=== PATIENT | female | born 1930 | race Caucasian/White ===

== ENCOUNTER 2016-06-11 19:16 | Emergency (ER) | payer MEDICARE ==
[~2016-06-11] VITALS: Ht 167.6 cm; Wt 79.4 kg
--- NOTE | 2016-06-11 20:09 | PHYS DOC ---
Past Medical History Past Medical History: Diabetes-Type II, High Cholesterol, Hypertension Past Surgical History: Other Additional Past Surgical Histo: R. breast Alcohol Use: None Drug Use: None Adult General Chief Complaint Chief Complaint: UPPER EXTREMITY INJURY HPI HPI 86-year-old female presents with right elbow pain. She states she fell going up a step to [employer]. She hit her right forearm. She states rotating her right arm in pronation and supination causes severe pain. She denies any other injury. She states is no pain in her wrist. She also states her is no pain in the shoulder. [] Review of Systems Review of Systems Constitutional: Denies fever or chills [] Eyes: Denies change in visual acuity, redness, or eye pain [] HENT: Denies nasal congestion or sore throat [] Respiratory: Denies cough or shortness of breath [] Cardiovascular: No additional information not addressed in HPI [] GI: Denies abdominal pain, nausea, vomiting, bloody stools or diarrhea [] : Denies dysuria or hematuria [] Musculoskeletal: Right elbow injury [] Integument: Denies rash or skin lesions [] Neurologic: Denies headache, focal weakness or sensory changes [] Endocrine: Denies polyuria or polydipsia [] Allergies Allergies Allergies Coded Allergies Type Severity Reaction Last Updated Verified Penicillins Allergy Unknown Rash 06/11/16 Yes Physical Exam Physical Exam Constitutional: Well developed, well nourished, no acute distress, non-toxic appearance. [] HENT: Normocephalic, atraumatic, bilateral external ears normal, oropharynx moist, no oral exudates, nose normal. [] Eyes: PERRLA, EOMI, conjunctiva normal, no discharge. [] Neck: Normal range of motion, no tenderness, supple, no stridor. [] Cardiovascular:Heart rate regular rhythm, no murmur [] Lungs & Thorax: Bilateral breath sounds clear to auscultation [] Abdomen: Bowel sounds normal, soft, no tenderness, no masses, no pulsatile masses. [] Skin: Warm, dry, no erythema, no rash. [] Back: No tenderness, no CVA tenderness. [] Extremities: No tenderness, no cyanosis, no clubbing, ROM intact, no edema. [] Neurologic: Alert and oriented X 3, normal motor function, normal sensory function, no focal deficits noted. [] Psychologic: Affect normal, judgement normal, mood normal. [] Current Patient Data Vital Signs Vital Signs Date Time Temp Pulse Resp B/P Pulse Ox O2 Delivery O2 Flow Rate FiO2 06/11/16 19:26 98.8 84 18 158/72 96 Room Air 98.8 EKG EKG [] Radiology/Procedures Radiology/Procedures [] Impressions: Proximal radius fracture as interpreted by me Course & Med Decision Making Course & Med Decision Making Pertinent Labs and Imaging studies reviewed. (See chart for details) [Procedure: Sugar tong splint patient's right arm was flexed to 90 in a sugar tong splint was placed. The splint was placed by the signal technician. I examined the patient after the splint was placed with good cap refill and sensation. A sling was also placed. Dragon Disclaimer Dragon Disclaimer This electronic medical record was generated, in whole or in part, using a voice recognition dictation system. Departure Departure Impression: Primary Impression: Fracture, radius, proximal Disposition: HOME, SELF-CARE Condition: STABLE Referrals: MARILYN ATKINSON II, MD Patient Instructions: Radius Fracture with [facility] Additional Instructions: Follow with this week for recheck. Wear splint until seen by the orthopedic doctor. Scripts Hydrocodone/Apap 5-325 ([place] 5-325 Tablet)1 Each Tablet1 Tab PO PRN Q6HRS PRN PAIN #30 TAB Prov:WIL MENDIETA DO 06/11/16 Problem Qualifiers Primary Impression: Fracture, radius, proximal Encounter type: initial encounter Fracture type: closed Fracture morphology : unspecified fracture morphology Laterality: right Qualified Code: S52.101A - Unspecified fracture of upper end of right radius, initial encounter for closed fracture WIL MENDIETA DO Jun 11, 2016 20:09
[2016-06-11] MEDS ORDERED: HYDR-971 PO (20:14)
[2016-06-11 20:32] VITALS: BP 126/60
[2016-06-12] MEDS ORDERED: OXYC-323 PO (06:22)
--- NOTE | 2016-06-16 08:57 | RAD ---
Exam performed: X-ray right wrist and right forearm History: Follow-up fracture. Date of service: X-ray progressed from 06/12/16 and X-ray right forearm from 04/29. 3 views right forearm findings: There is a minimally displaced fracture neck of right radius. The wrist joint appears essentially preserved. There are degenerative changes about the intercarpal joints. Diffuse soft tissue swelling is identified. There is a elbow joint effusion. Impression: 1. Minimally displaced fracture neck of right radius with diffuse soft tissue swelling. End impression. 3 views right wrist findings: Normal alignment is essentially preserved. An ossific fragment is visible on the lateral view on the volar aspect, however no gross displaced fracture is identified. Fine bony details are obscured by the casting material. There are degenerative changes about the first carpometacarpal joint. Impression: 1. No gross fracture displaced fracture noted although note is made that casting material obscures fine bony details. 2. 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 [facility]
== END 2016-06-11 20:46 | disposition home or self-care (01) ==
LOC: ER 19:16
DX: S52.101A Unspecified fracture of upper end of right radius, initial encounter for closed fracture (principal); I10 Essential (primary) hypertension; E78.00 Pure hypercholesterolemia, unspecified; E11.9 Type 2 diabetes mellitus without complications; Z88.0 Allergy status to penicillin; W22.8XXA Striking against or struck by other objects, initial encounter; Y93.89 Activity, other specified; Y99.8 Other external cause status; Y92.89 Other specified places as the place of occurrence of the external cause
CPT/HCPCS: 29125; 73090; 99284-25

== ENCOUNTER 2016-06-12 05:25 | Emergency (ER) | payer MEDICARE ==
[~2016-06-12] VITALS: Ht 167.6 cm; Wt 79.4 kg
[~2016-06-12 05:25] MED LIST: HYDR-971 PO
--- NOTE | 2016-06-12 06:04 | PHYS DOC ---
Past Medical History Past Medical History: Diabetes-Type II, High Cholesterol, Hypertension Past Surgical History: Other Additional Past Surgical Histo: R. breast Alcohol Use: None Drug Use: None Adult General Chief Complaint Chief Complaint: UPPER EXTREMITY PAIN HPI HPI Patient is a 86 year [id number] female who presents here today complaining of pain to her right wrist. Patient reports yesterday afternoon she went to [facility] she tripped and fell on her right upper extremity. Patient does not recall exactly how she landed does not recall if it was on outstretched arm or not. Patient arrived to the ER yesterday afternoon and had an x-ray obtained of her right elbow which revealed a fracture of her proximal radius. Patient was placed in a sugar tong splint and was discharged home with instructions to follow up with Dr. martinez. Patient reports that she is from the [facility] is returning on Thursday so her preference is to follow-up with her own primary care physician for referral to see an orthopedic surgeon. The patient is planning on calling her private care physician this morning to set up follow- up with an orthopedic surgeon at the [facility] for her when she returns next week. Patient returns to the ER today complaining of pain and tingling and swelling at her right wrist. Patient reports that the pain in her right elbow is fairly well-controlled however she is concerned that she also has pain now at her right wrist. Patient denies any subsequent falls or trauma. Patient is requesting a shot to help with the pain at this time because of the discomfort. Patient's physical exam is significant for tenderness to palpation to her right wrist greatest near the radial aspect. There is no significant soft tissue swelling in that area currently. Patient has good hand music education director however she reports decreased sensation and paresthesias to her hand. A/P this is an 86-year-old female who presents to the ER today complaining of pain to her right wrist. Patient was seen and evaluated here in the ER yesterday and was diagnosed with a proximal radius fracture. Patient was placed in a splint yesterday was instructed to follow up with her primary care physician/orthopedic surgeon for further evaluation and treatment and management of her proximal radius fracture. Patient's x-ray of her right forearm yesterday does not reveal any acute fracture of her wrist however there are no dedicated films. Patient will need to get films done and then reassessed as well as pain management. Review of Systems Review of Systems Constitutional: Denies fever or chills [] Eyes: Denies change in visual acuity, redness, or eye pain [] HENT: Denies nasal congestion or sore throat [] All other review systems are negative except as documented in the history of present illness portion. Current Medications Current Medications Current Medications Medications (Trade) Dose Ordered Sig/Dinesh Start Time Stop Time Status Last Admin Dose Admin Hydromorphone HCl (Dilaudid) 1 mg 1X ONCE 06/12/16 06:15 06/12/16 06:16 DC 06/12/16 06:11 1 MG Ondansetron HCl (Zofran Odt) 4 mg 1X ONCE 06/12/16 06:15 06/12/16 06:16 DC 06/12/16 06:11 4 MG Allergies Allergies Allergies Coded Allergies Type Severity Reaction Last Updated Verified Penicillins Allergy Unknown Rash 06/11/16 Yes Physical Exam Physical Exam Constitutional: Well developed, well nourished, no acute distress, non-toxic appearance. [] HENT: Normocephalic, atraumatic, bilateral external ears normal, oropharynx moist, no oral exudates, nose normal. [] Eyes: PERRLA, EOMI, conjunctiva normal, no discharge. [] Neck: Normal range of motion, no tenderness, supple, no stridor. [] r wrist tenderness to palpation. min st swelling. Current Patient Data Vital Signs Vital Signs Date Time Temp Pulse Resp B/P Pulse Ox O2 Delivery O2 Flow Rate FiO2 06/12/16 05:40 97.4 80 18 126/60 96 Room Air 97.4 EKG EKG [] Radiology/Procedures Radiology/Procedures [] X-ray negative for acute fracture. Patient is still splinted to her distal phalanxes. Patient feels much better after the shot of Dilaudid and we will send her home with Percocet. Course & Med Decision Making Course & Med Decision Making Pertinent Labs and Imaging studies reviewed. (See chart for details) []Case signed out to dr roldan with xray pending. Tommy Disclaimer Tommy Disclaimer This electronic medical record was generated, in whole or in part, using a voice recognition dictation system. Departure Departure Impression: Primary Impression: Wrist sprain Disposition: HOME, SELF-CARE Condition: IMPROVED Referrals: UNKNOWN PCP NAME (PCP) Patient Instructions: Cast or Splint Care, Wrist Sprain with [facility] Scripts Oxycodone/Apap 5-325 (Percocet 5-325 Mg Tablet)1 Each Tablet1 Tab PO Q6-8HRS PRN PAIN #20 TAB Prov:KANDICE ACUÑA MD 06/12/16 Problem Qualifiers Primary Impression: Wrist sprain Encounter type: subsequent encounter Laterality: right Qualified Code: S63.501D - Unspecified sprain of right wrist, subsequent encounter KANDICE ACUÑA MD Jun 12, 2016 06:04
[2016-06-12 06:08] VITALS: BP 148/73
[2016-06-12] MEDS ORDERED: ONDANSETRON ODT 4 MG TAB.RAPDIS PO ONE (06:15)
[2016-06-12] MEDS ORDERED: HYDROMORPHONE 2 MG/ML VIAL. IM ONE (06:15)
[2016-06-12] MEDS ORDERED: OXYC-323 PO (06:22)
--- NOTE | 2016-06-16 08:58 | RAD ---
Exam performed: X-ray right wrist and right forearm History: Follow-up fracture. Date of service: X-ray progressed from 06/12/16 and X-ray right forearm from 04/29. 3 views right forearm findings: There is a minimally displaced fracture neck of right radius. The wrist joint appears essentially preserved. There are degenerative changes about the intercarpal joints. Diffuse soft tissue swelling is identified. There is a elbow joint effusion. Impression: 1. Minimally displaced fracture neck of right radius with diffuse soft tissue swelling. End impression. 3 views right wrist findings: Normal alignment is essentially preserved. An ossific fragment is visible on the lateral view on the volar aspect, however no gross displaced fracture is identified. Fine bony details are obscured by the casting material. There are degenerative changes about the first carpometacarpal joint. Impression: 1. No gross fracture displaced fracture noted although note is made that casting material obscures fine bony details. 2. 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 [facility]
== END 2016-06-12 06:35 | disposition home or self-care (01) ==
LOC: ER 05:25
DX: S63.501A Unspecified sprain of right wrist, initial encounter (principal); I10 Essential (primary) hypertension; E78.00 Pure hypercholesterolemia, unspecified; E11.9 Type 2 diabetes mellitus without complications; Z88.0 Allergy status to penicillin; W01.0XXA Fall on same level from slipping, tripping and stumbling without subsequent striking against object, initial encounter; Y93.89 Activity, other specified; Y92.22 Religious institution as the place of occurrence of the external cause; Y99.8 Other external cause status
CPT/HCPCS: 73110; 96372; 99284; J1170; Q0162

== ENCOUNTER 2016-06-14 11:39 | Emergency (ER) | payer MEDICARE ==
[~2016-06-14] VITALS: Ht 167.6 cm; Wt 79.4 kg
[~2016-06-14 11:39] MED LIST changes: +OXYC-323 PO
[2016-06-14] MEDS ORDERED: DIAZEPAM 10 MG/2 ML DISP.SYRIN. IM ONE (12:30)
[2016-06-14] MEDS ORDERED: NAPROXEN 250 MG TABLET PO ONE (12:30)
[2016-06-14] MEDS ORDERED: HYDROMORPHONE 2 MG/ML VIAL. IM ONE (14:15)
[2016-06-14] MEDS ORDERED: CYCL5TAB PO (15:08)
[2016-06-14] MEDS ORDERED: NAPR250T2 PO (15:08)
[2016-06-14 15:10] LABS: POTASSIUM ISTAT 3.3 mmol/L (3.5-5.0)
[2016-06-14] MEDS ORDERED: GABA-585 PO (15:16)
[2016-06-14] MEDS ORDERED: GABAPENTIN 100 MG CAPSULE. PO ONE (15:30)
[2016-06-14 15:41] VITALS: BP 156/73
--- NOTE | 2016-06-14 16:58 | ED.ADGEN ---
Past Medical History Past Medical History: Diabetes-Type II, High Cholesterol, Hypertension Past Surgical History: Appendectomy, Cholecystectomy, Knee Replacement, Other Additional Past Surgical Histo: R. breast MASTECTOMY Alcohol Use: None Drug Use: None Adult General Chief Complaint Chief Complaint: UPPER EXTREMITY PAIN HPI HPI Patient is a 86 year old woman, history of type 2 diabetes mellitus, hypercholesterolemia, hypertension, who presents to the emergency department with a complaint of right upper extremity pain and paresthesias. Patient was seen in the emergency department last week, after a fall resulted in a minimally displaced radial head fracture. Patient had a sugar tong splint placed , and was discharged home with oxycodone, which she does take daily for chronic back pain. Patient was seen in the emergency department 2 days ago, with complaints of her staging continued pain and swelling, that time she had x-ray of her wrist performed was negative, was continued on her analgesia medications. Patient states that she continues to have paresthesias in the radial distribution of her right hand, with swelling of the fingers and hand. Patient still has blood in place, denies any new injuries, denies any fevers or chills, or other complaints. She last took her hydrocodone about 9:00 in the morning, 6 hours prior to arrival. Review of Systems Review of Systems Constitutional: Denies fever or chills. [] Eyes: Denies change in visual acuity. [] HENT: Denies nasal congestion or sore throat. [] Respiratory: Denies cough or shortness of breath. [] Cardiovascular: Denies chest pain or edema. [] GI: Denies abdominal pain, nausea, vomiting, bloody stools or diarrhea. [] : Denies dysuria. [] Musculoskeletal: Denies back pain, pain and paresthesias right upper extremity. Integument: Denies rash. [] Neurologic: Denies headache, focal weakness or sensory changes. [] Endocrine: Denies polyuria or polydipsia. [] Lymphatic: Denies swollen glands. [] Psychiatric: Denies depression or anxiety. [] Current Medications Current Medications Current Medications Medications (Trade) Dose Ordered Sig/Dinesh Start Time Stop Time Status Last Admin Dose Admin Diazepam (Valium) 5 mg 1X ONCE 06/14/16 12:30 06/14/16 12:31 DC 06/14/16 12:56 5 MG Gabapentin (Neurontin) 100 mg 1X ONCE 06/14/16 15:30 06/14/16 15:31 DC 06/14/16 15:27 100 MG Hydromorphone HCl (Dilaudid) 0.5 mg 1X ONCE 06/14/16 14:15 06/14/16 14:16 DC 06/14/16 15:11 0.5 MG Naproxen (Naprosyn) 250 mg 1X ONCE 06/14/16 12:30 06/14/16 12:31 DC 06/14/16 12:56 250 MG Allergies Allergies Allergies Coded Allergies Type Severity Reaction Last Updated Verified Penicillins Allergy Unknown Rash 06/11/16 Yes Physical Exam Physical Exam Constitutional: Well developed, well nourished, no acute distress, non-toxic appearance. [] HENT: Normocephalic, atraumatic, bilateral external ears normal, oropharynx moist, no oral exudates, nose normal. [] Eyes: PERRLA, EOMI, conjunctiva normal, no discharge. [] Neck: Normal range of motion, no tenderness, supple, no stridor. [] Cardiovascular:Heart rate regular rhythm, no murmur, S1, S2, rubs or gallops. [] Lungs & Thorax: Bilateral breath sounds clear to auscultation, no wheezing, rhonchi, rales. [] Abdomen: Bowel sounds normal, soft, no tenderness, no masses, no pulsatile masses. [] Skin: Warm, dry, no erythema, no rash. [] Back: No tenderness, no CVA tenderness. [] Extremities: Patient with tenderness to palpation at the elbow, with no evidence of acute trauma or deformity, no bruising, patient noted to have mild swelling located in the dorsal aspect of the right hand, she does have range of motion in the fingers, although there is mild swelling noted in fingers 2 and 3 , is able to flex and extend, although she states she does have pain. Complains of decreased sensation in the radial distribution of the fingers, normal sensation and function of fourth and fifth digits consistent with the ulnar distribution. No cyanosis, no clubbing, no edema. [] Neurologic: Alert and oriented X 3, normal motor function, normal sensory function, no focal deficits noted. [] Psychologic: Affect normal, judgement normal, mood normal. [] Current Patient Data Vital Signs Vital Signs Date Time Temp Pulse Resp B/P Pulse Ox O2 Delivery O2 Flow Rate FiO2 3/4/17 15:41 88 20 156/73 96 Room Air 06/14/16 11:56 98.6 98.6 Lab Values Laboratory Tests Test 06/14/16 15:05 POC Hemoglobin 14.6g/dL (12-15) POC Hematocrit 43% (36-40) H POC Sodium 140mmol/L (135-145) POC Potassium 3.3mmol/L (3.5-5.0) L POC Chloride 97mmol/L (98-110) L POC Total CO2 31mmol/L (23-32) Anion Gap 16mmol/L (6-14) H POC Blood Urea Nitrogen 36mg/dL (8-26) H POC Creatinine 1.7mg/dL (0.5-1.4) H Glucose Level 106mg/dL (70-99) H POC Ionized Calcium (Bruno) 1.10mmol/L (1.13-1.32) L Laboratory Tests 06/14/16 15:05 EKG EKG Not indicated. [] Radiology/Procedures Radiology/Procedures Not indicated. [] Course & Med Decision Making Course & Med Decision Making Pertinent Labs and Imaging studies reviewed. (See chart for details) Once patient's splint was removed, she had significant improvement of swelling, and the redness with her fingers, I do believe after discussion that the patient was not elevating her upper extremity properly, and her hand was hanging over the splint, causing some compression, and pain. She has no signs of compartment syndrome, of any concerning entrapment, and once this was removed and the swelling has decreased, her pain is significantly improved, patient is however, continued to experience some neuropathic type pain, consistent with the swelling that we didn't note, therefore she was given Valium , naproxen in the ED, and also a injection of Dilaudid after her pain return, patient is on oxycodone at home twice daily for chronic pain. Findings as above discussed with Dr. Sy of orthopedics, as stated patient has no evidence of any acutely concerning findings, examination is consistent with swelling in the radial nerve distribution. There is no discoloration, evidence of infection, or evidence of new injury. No indications to re-x-ray. Recommends continuing with the sling only, continue to treat symptoms, including the addition of Neurontin for neuropathic pain. Patient has an appointment to follow up with an orthopedist near her home, and she'll be returning home tomorrow. On reevaluation patient is resting much more currently, neuropathic symptoms significantly improved, with swelling considerably improved as well. Sling replaced without issue, patient had a creatinine of 1.7, elevated blood urea nitrogen 36, patient encouraged to stay well-hydrated, does have a history of diabetes, therefore we will institute gabapentin 100 mg twice daily, along with the patient's home dose of oxycodone, which she is instructed to distance from use of cyclobenzaprine due to risk of sedation, and naproxen, patient giving medication precautions instructions on each of these drugs. To continue her home medications as stated. First dose of gabapentin given in the ED. Patient instructed to follow-up with her orthopedist, to continue sling as directed, and to return to the ED if any new or concerning symptoms develop. Patient and family at bedside voiced understanding and agreement with this plan, patient discharged home in stable condition with plan and prescriptions as above. Dragon Disclaimer Dragon Disclaimer This electronic medical record was generated, in whole or in part, using a voice recognition dictation system. Departure Impression: Primary Impression: Arm pain, right Additional Impressions: Fracture, radius, proximal Paresthesias in right hand Disposition: 01 HOME, SELF-CARE Condition: IMPROVED Scripts Gabapentin (Neurontin)100 Mg [id number] Mg PO BID PRN neuropathy #12 CAP Prov:MICHEAL CHAMPION DO 06/14/16 Naproxen 250 Mg [id number] Mg PO BID PRN PAIN #10 Prov:MICHEAL CHAMPION DO 06/14/16 Cyclobenzaprine Hcl 5 Mg Tablet1 Tab PO TID PRN PAIN #12 TAB Prov:MICHEAL CHAMPION DO 06/14/16 Problem Qualifiers Additional Impressions: Fracture, radius, proximal Encounter type: subsequent encounter Fracture type: closed Fracture morphology: unspecified fracture morphology Laterality: right Fracture healing: with routine healing Qualified Code: S52.101D - Unspecified fracture of upper end of right radius, subsequent encounter for closed fracture with routine healing MICHEAL CHAMPION DO Jun 14, 2016 16:58
== END 2016-06-14 15:41 | disposition home or self-care (01) ==
LOC: ER 11:39
DX: S52.101D Unspecified fracture of upper end of right radius, subsequent encounter for closed fracture with routine healing (principal); R20.9 Unspecified disturbances of skin sensation; I10 Essential (primary) hypertension; E11.9 Type 2 diabetes mellitus without complications; E78.00 Pure hypercholesterolemia, unspecified; Z88.0 Allergy status to penicillin; X58.XXXD Exposure to other specified factors, subsequent encounter
CPT/HCPCS: 80047; 96372; 99284; J1170; J3360

== ENCOUNTER 2021-09-05 11:15 | Emergency (ER) | payer MEDICARE ==
[~2021-09-05] VITALS: Ht 167.6 cm; Wt 72.3 kg
[~2021-09-05 11:15] MED LIST changes: +CYCL5TAB PO; +GABA-585 PO; +HYDR-3164 PO; -HYDR-971 PO; +NAPR-699 PO; -OXYC-323 PO; +OXYC1TAB15 PO
--- NOTE | 2021-09-05 11:35 | PHYS DOC ---
Past Medical History Past Medical History: Diabetes-Type II, High Cholesterol, Hypertension (KADI HELTON APRN) Past Surgical History: Appendectomy, Cholecystectomy, Knee Replacement, Other Additional Past Surgical Histo: R. breast MASTECTOMY (KADI HELTON APRN) Smoking Status: Never Smoker Alcohol Use: None Drug Use: None (KADI HELTON APRN) General Adult EDM: Chief Complaint: CONSTIPATION HPI: HPI: Patient is a 89-year-old female presents to the emergency department with complaints of decreasing bowel movements over the past 4 days. Patient reports she takes stool softeners at home, has noted that her stool while remaining soft has been very little and is now concerned that she is constipated. Patient reports she has had similar episodes in the past and gets good results with an enema. Patient reports she is here in the emergency department to receive her enema. Patient denies chest pains, dizziness, syncopal or near syncopal episodes, denies seeing blood in her stool, denies increased urinary frequency, urinary pressure, urinary burning, urinary pain hematuria or other dysuria. Patient denies other physical complaints or physical concerns. (KADI HELTON APRN) Review of Systems: Review of Systems: 14 body systems of review of systems have been reviewed. See HPI for pertinent positives and negative responses, otherwise all other systems are negative, nonpertinent or noncontributory. Constitutional: Negative except as outlined in HPI above. Skin: Negative except as outlined in HPI above. Eyes: Negative except as outlined in HPI above. HENT: Negative except as outlined in HPI above. Respiratory: Negative except as outlined in HPI above. Cardiovascular: Negative except as outlined in HPI above. GI: Negative except as outlined in HPI above. : Negative except as outlined in HPI above. Musculoskeletal: Negative except as outlined in HPI above. Integument: Negative except as outlined in HPI above. Neurologic: Negative except as outlined in HPI above. Endocrine: Negative except as outlined in HPI above. Lymphatic: Negative except as outlined in HPI above. Psychiatric: Negative except as outlined in HPI above. (KADI HELTON APRN) Heart Score: C/O Chest Pain: No Risk Factors: Risk Factors: DM, Current or recent (<one month) smoker, HTN, HLP, family history of CAD, obesity. Risk Scores: Score 0 - 3: 2.5% MACE over next 6 weeks - Discharge Home Score 4 - 6: 20.3% MACE over next 6 weeks - Admit for Clinical Observation Score 7 - 10: 72.7% MACE over next 6 weeks - Early Invasive Strategies (KADI HELTON APRN) Allergies: Allergies: Allergies Coded Allergies Type Severity Reaction Last Updated Verified Penicillins Allergy Unknown Rash 06/11/16 Yes (KADI HELTON APRN) Physical Exam: PE: Constitutional: Well developed, well nourished, no acute distress, non-toxic appearance. 89-year-old female in no apparent distress. HENT: Normocephalic, atraumatic. Eyes: Conjunctiva normal, no discharge. Neck: Normal range of motion, no stridor. Cardiovascular: No cyanosis appreciated, distal cap refill less than 2 seconds. Lungs & Thorax: Patient is in no respiratory distress, no audible adventitious lung sounds appreciated. Lung sounds are clear to auscultation all lung tuttle. Abdomen: Old surgical scars present, no skin discoloration of the abdomen appreciated, abdomen is round and soft, generalized discomfort to palpation all quadrants. Normal bowel sounds all 4 quadrants. Skin: Warm, dry, no erythema, no rash. Back: No tenderness, no deformities. Extremities: No tenderness, no cyanosis, no clubbing, ROM intact, no edema. Neurologic: Alert and oriented X 3, normal motor function, normal sensory function, no focal deficits noted. Psychologic: Affect normal, judgement normal, mood normal. (KADI HELTON APRN) Current Patient Data: Vital Signs: Vital Signs Date Time Temp Pulse Resp B/P (MAP) Pulse Ox O2 Delivery O2 Flow Rate FiO2 09/05/21 11:20 97.9 93 18 120/59 (79) 95 Room Air 97.9 (KADI HELTON APRN) EKG: EKG: [] (KADI HELTON APRN) Radiology/Procedures: Radiology/Procedures: REASON: constipation evaluation/abdominal pain PROCEDURE: ACUTE ABDOMEN SERIES XR ABDOMEN COMP ACUTE History: Reason: constipation evaluation/abdominal pain / Spl. Instructions: / History: Technique: Upright and supine views of the abdomen. Comparison: None. Findings: Mild left basilar linear atelectasis. No pleural effusion. No pneumothorax. Normal heart size. Sclerotic lesion within the left proximal humerus, likely enchondroma partially imaged. Nodular opacity projecting over the right lung base measures 0.4 cm. Mild small bowel gas. Air and stool throughout the colon. Moderate colonic stool burden. Calcination within the region of the left renal fossa measures 0.6 cm. Multilevel lumbar spondylosis. Phleboliths projecting over the pelvis. Additional calcifications projecting over the pelvis, may represent fibroids. Surgical clips right upper quadrant. Impression: 1. Nonobstructed bowel gas pattern. Moderate colonic stool burden. 2. Probable left nephrolithiasis. 3. Nodular opacity projecting over the right lung base, may represent pulmonary nodule summation artifact. Recommend follow-up. Electronically signed by: Lorenzo Moeller DO (09/05/2021 12:38 PM) [id number] (KADI HELTON APRN) Course & Med Decision Making: Course & Med Decision Making Pertinent Labs and Imaging studies reviewed. (See chart for details) 89-year-old female, vital signs reviewed, presents to the emergency department via EMS for decreased amount of bowel movements over the past 4 days. Patient reports she is here for an enema. Physical examination is unremarkable. Will order acute abdomen to evaluate for constipation. Will order urinalysis assay. X-ray consistent with constipation, will give fleets enema. Patient had large bowel movement after fleets enema was given, states she feels much better now is ready to go home. Discussed with patient continue all home medications, strict follow-up with primary care for ongoing symptoms, return to ER precautions and concerns were reviewed, patient gave verbal understanding of and is amenable to ED discharge planning. Discussed with the patient all findings and diagnostic testing as well as the ne ed to follow-up with their primary care provider for further evaluation and treatment or return to the ED if any new or worsening symptoms. Strict return precautions were also discussed at length, the patient voiced understanding and agreement with the discharge planning. The patient was nontoxic in appearance, in no apparent distress, and hemodynamically stable at the time of disposition. (KADI HELTON APRN) Dragon Disclaimer: Dragon Disclaimer: This electronic medical record was generated, in whole or in part, using a voice recognition dictation system. (KADI HELTON APRN) Departure Departure Impression: Primary Impression: Constipation Qualified Codes: K59.00 - Constipation, unspecified Disposition: HOME / SELF CARE / HOMELESS Condition: GOOD Referrals: UNKNOWN PCP NAME (PCP) Patient Instructions: Constipation, Adult Additional Instructions: You were seen today in the emergency department for constipation. Your x-ray of the abdomen did reveal that you had a large amount of stool in your colon. You were given a fleets enema which resulted in a large bowel movement. Please continue to take all of your home medications as prescribed by your primary care doctor, increase fluids to help with constipation issues, return to the emerg ency department for worsening symptoms or other concerns. Thank you for visiting our Emergency Department. It was a pleasure taking care of you today in the emergency department and we appreciate you trusting us with your care. If any additional problems come up don't hesitate to return to visit us. Please follow up with your primary care provider so they can plan additional care if needed and know about the problem that you had. If symptoms worsen come back to the Emergency Department. Any concerning symptoms that start such as chest pain, shortness of air, weakness or numbness on one side of the body, running high fevers or any other concerning symptoms return to the ER. Attending Signature I have participated in the care of this patient and I have reviewed and agree with all pertinent clinical information above including history, exam, and recommendations. (BILLIE SHAHID DO) KADI HELTON APRN September 05, 2021 11:35 BILLIE SHAHID DO September 05, 2021 13:57
[2021-09-05 12:20] VITALS: BP 109/55
--- NOTE | 2021-09-05 12:41 | RAD ---
XR ABDOMEN COMP ACUTE History: Reason: constipation evaluation/abdominal pain / Spl. Instructions: / History: Technique: Upright and supine views of the abdomen. Comparison: None. Findings: Mild left basilar linear atelectasis. No pleural effusion. No pneumothorax. Normal heart size. Sclero tic lesion within the left proximal humerus, likely enchondroma partially imaged. Nodular opacity pro jecting over the right lung base measures 0.4 cm. Mild small bowel gas. Air and stool throughout the colon. Moderate colonic stool burden. Calcination within the region of the left renal fossa measures 0.6 cm. Multilevel lumbar spondylosis. Phleboliths projecting over the pelvis. Additional calcifications projecting over the pelvis, may represent fibr oids. Surgical clips right upper quadrant. Impression: 1. Nonobstructed bowel gas pattern. Moderate colonic stool burden. 2. Probable left nephrolithiasis. 3. Nodular opacity projecting over the right lung base, may represent pulmonary nodule summation art ifact. Recommend follow-up. Electronically signed by: Lorenzo Moeller DO (09/05/2021 12:38 PM) [id number]
[2021-09-05] MEDS ORDERED: SODIUM PHOSPHATES 19/7GM 133 ML ENEMA. PR ONE (12:45)
== END 2021-09-05 14:14 | disposition home or self-care (01) ==
LOC: ER 11:15
DX: K59.00 Constipation, unspecified (principal); E11.9 Type 2 diabetes mellitus without complications; E78.00 Pure hypercholesterolemia, unspecified; I10 Essential (primary) hypertension; Z90.89 Acquired absence of other organs; Z90.49 Acquired absence of other specified parts of digestive tract; Z88.0 Allergy status to penicillin
CPT/HCPCS: 74022; 99284